=== PATIENT | male | born 1990 | race Caucasian/White ===

== ENCOUNTER 2022-05-07 19:56 | Emergency (ER) | payer SELFPAY ==
[~2022-05-07] VITALS: Ht 180.3 cm; Wt 95.3 kg
--- NOTE | 2022-05-07 20:10 | NUR ---
: doug at b/s and spoked with patient , refused blood work and admitted to smoking fentanyl , verbalized a headache .
--- NOTE | 2022-05-07 20:13 | NUR ---
collected urine sample and send to lab, patient verbalized i dont want too be here . informed dr: doug .
[2022-05-07] MEDS ORDERED: NALO4SPR BNOSTRILS (20:14)
[2022-05-07] MEDS ORDERED: IBUPROFEN 600 MG TABLET PO ONE (20:15)
[2022-05-07] MEDS ORDERED: IBUPROFEN 600 MG TABLET ONE (20:16)
--- NOTE | 2022-05-07 20:22 | NUR ---
Patient discharged to home with dad in stable condition. [id number] ambulatory,Written and verbal after care instructions given. no acute distress noted ,all belongings with patient . Patient verbalizes understanding of instructions. Stressed follow up or return to ER for worsening s/s.
[2022-05-07 20:26] VITALS: BP 125/87
[2022-05-08] MEDS ORDERED: NALO4SPR BNOSTRILS (08:06)
== END 2022-05-07 20:27 | disposition left against medical advice (07) ==
LOC: ER 20:02
DX: T40.411A Poisoning by fentanyl or fentanyl analogs, accidental (unintentional), initial encounter (principal); R51.9 Headache, unspecified; Y92.59 Other trade areas as the place of occurrence of the external cause; R03.0 Elevated blood-pressure reading, without diagnosis of hypertension
CPT/HCPCS: A4663